=== PATIENT | female | born 1945 | race Caucasian/White ===

== ENCOUNTER → 2020-03-05 10:40 | Outpatient (CLI) | payer MEDICARE, SELFPAY ==
--- NOTE | 2020-03-05 | CA_ITS ---
APPROVED REPORT Exam: Pharmacologic Technologist: Pippa Barros, Ht: 5 ft 3 in Wt: 195 lbs BSA: 1.91 m2 HR: 63 bpm BP: 159/87 mmHg Medical History Medications: Lisinopril,,,,, Metformin,,,,, Carvedilol,,,,, LevothROXINE,,,,, VenAflaxine,,,,, Stress Test Details Test: LEXISCAN HR Resting HR: 63 bpm Max Heart Rate (APMHR): 146 bpm Max HR Achieved: 83 bpm Target HR (85% APMHR): 124 bpm % of APMHR: 56 Recovery HR: 73 bpm BP Resting BP: 159/87 mmHg Max BP: 159/87 mmHg Recovery BP: 140.0/62.0 mmHg ECG Clinical Reason for Termination: Completed Protocol Exercise duration: 04:00 min Highest Stage Achieved: Exercise capacity: 1.0 METs Stress ECG Conclusion Symptoms: None Arrythmias/Ectopy: None ST-T Changes: <1.5mm ST Segment Changes Conclusion: Non-Diagnostic Test Summary REST . . . . . . . Resting REST 04:47 . . 63 . 159/ 87 . . Stage 1 01:00 . . 80 . . . . Stage 2 01:00 . . 79 . 159/ 81 . . Stage 3 01:00 . . 77 . . . . Stage 4 01:00 . . 76 . 138/ 69 . Stop exercise at 04:00 RECOVERY 01:00 . . 71 . 150/ 75 . . RECOVERY 02:00 . . 72 . 140/ 62 . . RECOVERY 02:01 . . 72 . 140/ 62 . . Electronically signed by : Gee Reyes, 03/06/2020 06:57:45
--- NOTE | 2020-03-05 10:48 | NM_ITS ---
APPROVED REPORT Exam: Nuclear Stress Test Indication: Chest pain, Abnormal EKG, SOB, Fatigue, HTN, DM, Family history Patient Location: Outpatient Stress Tech: Lisa Tomas [place] Tech:Berta Cevallos, ARRT, RT (R)(N) Ht: 5 ft 3 in Wt: 195 lbs Bra Size: D HR: 63 bpm BP: 159/87 mmHg BSA: 1.91 m2 BMI: 34.5 History: Chest pain, Abnormal EKG, SOB, Fatigue, HTN, DM, Family history Procedure: Patient received a 0.4 mg of intravenous Lexiscan, resting heart rate 63 bpm, resting blood pressure 159/87 mmHg, with Lexiscan maximum heart rate achived was 79 bpm which is Less than 85 % of the maximum predicted heart rate and blood pressure was 159/81 mmHg. With Lexiscan, patient denied any complaint of chest pain. Electrocardiogram Resting electrocardiogram showed sinus rhythm, with Lexiscan there is less than 1.[address] segment depression noted from the baseline EKG. The EKG portion of the Lexiscan is nondiagnostic. Cardiac Stress and Resting SPECT Images: Cardiac Stress and Resting SPECT images were obtained using technetium 99m Myoview 31.1 mCi stress and 10.35 mCi at rest. Gated SPECT for analysis of segmental wall motion and calculation of the ejection fraction also done. Cardiac stress and resting SPECT images show uniform myocardial activity without segmental perfusion abnormality, computer derived ejection fraction is 62% with no regional wall motion abnormality, right ventricle is normal size and contractility. Conclusion: 1. The EKG portion of the Lexiscan is nondiagnostic. 2. No scintigraphic evidence of reversible ischemia seen, computer derived ejection fraction is 62% with no regional wall motion abnormality, right ventricle is normal size and contractility. 3. Normal Lexiscan Myoview study. Electronically signed by : Gee Reyes, 03/06/2020 07:33:31
--- NOTE | 2020-03-05 12:44 | HMH.ITSHM ---
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 []METFORMIN LISINOPRIL CARVEDILOL LEVOTHYROXINE VENLAFAXINE
== END ==
PROVIDERS: PCP Internal Medicine Adolescent Medicine; Visit Provider Internal Medicine Adolescent Medicine
DX: R07.9 Chest pain, unspecified (principal); R06.00 Dyspnea, unspecified
CPT/HCPCS: 78452; 93017; A9502; J2785

== ENCOUNTER → 2020-03-20 10:38 | Outpatient (CLI) | payer MEDICARE, SELFPAY | PROVIDERS: PCP Internal Medicine Adolescent Medicine; Visit Provider Internal Medicine Adolescent Medicine | DX: R00.2 Palpitations (principal) | CPT/HCPCS: 93270 ==

== ENCOUNTER → 2020-03-27 12:36 | Outpatient (CLI) | payer MEDICARE, SELFPAY | PROVIDERS: PCP Internal Medicine Adolescent Medicine; Visit Provider Internal Medicine Adolescent Medicine | DX: G47.33 Obstructive sleep apnea (adult) (pediatric) (principal); I10 Essential (primary) hypertension; E66.9 Obesity, unspecified | CPT/HCPCS: G0399 ==

== ENCOUNTER → 2020-12-20 08:41 | Outpatient (CLI) | payer MEDICARE, SELFPAY ==
--- NOTE | 2020-12-20 08:44 | XR_ITS ---
PROCEDURE: XR DEXA AXIAL SKELETON CLINICAL HISTORY: OSTEOPENIA COMPARISON: CR BONE3 BONE DENSITOMETRY(HIP:LT SPINE from 04/11/2016 FINDINGS: The right hip BMD is 0.824 with a T-score of -1.0. The left hip BMD is 0.655 with a T-score of -1.8. The lumbar spine BMD is 0.944 with a T-score of -0.9. Previously the lowest density was in the lumbar spine with a T-score of -1.3. Increasing bony sclerosis now present at L3-L4 likely elevates today's score. IMPRESSION: This patient is considered osteopenic according to the World Health Organization criteria. Bone density is between 10 and 25 percent below young normal. Fracture risk is moderate. Treatment is advised. Based on these results a follow-up exam is recommended in 2 year. Dictated by: Martin Barrow MD 12/20/2020 14:24 Martin Barrow MD in [place] 12/20/2020 14:24
== END ==
PROVIDERS: PCP Internal Medicine Adolescent Medicine; Visit Provider Internal Medicine Adolescent Medicine
DX: M85.89 Other specified disorders of bone density and structure, multiple sites (principal)
CPT/HCPCS: 77080

== ENCOUNTER → 2021-02-12 09:57 | Outpatient (CLI) | payer MEDICARE, SELFPAY ==
[2021-02-12 14:01] LABS: Alanine Aminotransferase 29 U/L (12-78); Albumin Level 3.8 g/dl (3.5-5.0); Albumin/Globulin Ratio 1.6 (1.1-1.8); Alkaline Phosphatase 66 U/L (38-126); Anion Gap 13.2 mEq/L (5-15); Aspartate Amino Transferase 33 U/L (14-36); Bilirubin,Total 0.3 mg/dl (0.2-1.3); Blood Urea Nitrogen 15 mg/dl (7-17); Calcium 8.6 mg/dl (8.4-10.2); Carbon Dioxide 22 mmol/L (22.0-30.0); Chloride 91 mmol/L (98-107); Chol/HDL Ratio 4.8 (1-3.5); Cholesterol 160 mg/dl (140-200); Estimated Glomerular Filt Rate 70 ml/min (>60); GFR (African American) 85 ML/MIN (>60); Globulin 2.4 g/dL (1.3-3.2); Glucose 129 mg/dl (74-100); HDL Cholesterol 33 mg/dl (40-60); Potassium 4.2 mmoL/L (3.5-5.1); Sodium 122 mmol/L (136-145); Total Protein,Serum 6.2 g/dl (6.3-8.2); Triglycerides 269 mg/dl (30-150); VLDL Cholesterol 54 mg/dL (0-40)
[2021-02-12 14:04] LABS: Basophils # 0.1 K/mm3 (0-0.2); Basophils % 0.9 % (0.1-2.0); Eosinophils # 0.3 K/mm3 (0.0-0.4); Eosinophils % 3.9 % (0.1-12.0); Hematocrit 42.3 % (37.0-47.0); Hemoglobin 14.2 g/dL (12.2-16.2); Lymphocytes # 2.2 K/mm3 (0.7-4.5); Lymphocytes % 30.8 % (10-50); Mean Corpuscular HGB Conc 33.5 g/dL (31.8-35.4); Mean Corpuscular Hemoglobin 28.7 pg (27.0-31.2); Mean Corpuscular Volume 85.7 fl (81-99); Mean Platelet Volume 9.2 fl (7.4-10.4); Monocytes # 0.5 K/mm3 (0.1-1.0); Monocytes % 6.4 % (1.7-9.3); Neutrophils # 4.2 K/mm3 (1.8-7.8); Neutrophils % 58.1 % (37.0-80.0); Platelet Count 254 K/mm3 (142-424); Red Blood Count 4.94 M/mm3 (4.20-5.40); Red Cell Distribution Width 13.4 % (11.5-17.5); White Blood Count 7.3 K/mm3 (4.8-10.8)
[2021-02-12 14:12] LABS: Direct LDL Cholesterol 93.13 mg/dL (100-129)
[2021-02-12 14:32] LABS: Thyroid Stimulating Hormone 3.16 uIU/mL (0.465-4.68)
== END ==
PROVIDERS: Visit Provider Internal Medicine Adolescent Medicine
DX: E11.9 Type 2 diabetes mellitus without complications (principal); E78.5 Hyperlipidemia, unspecified; E03.9 Hypothyroidism, unspecified
CPT/HCPCS: 36415; 80053; 80061; 83036; 84443; 85025